=== PATIENT | male | born 1985 | race African-American/Black ===

== ENCOUNTER 2018-11-29 08:36 | Emergency (ER) | payer SELFPAY ==
[~2018-11-29] VITALS: Ht 170.2 cm; Wt 60.0 kg
[2018-11-29] MEDS ORDERED: IBUPROFEN 600MG TABLET PO ONE (11:15)
[2018-11-29 11:47] VITALS: BP 128/89
== END 2018-11-29 11:49 | disposition home or self-care (01) ==
LOC: ER 08:36
DX: S00.83XA Contusion of other part of head, initial encounter (principal); Y04.0XXA Assault by unarmed brawl or fight, initial encounter; Y93.89 Activity, other specified; Y92.488 Other paved roadways as the place of occurrence of the external cause
CPT/HCPCS: 70486; 99284

== ENCOUNTER 2019-02-06 04:57 | Emergency (ER) | payer SELFPAY ==
[~2019-02-06] VITALS: Ht 165.1 cm; Wt 65.0 kg
[2019-02-06 07:21] VITALS: BP 130/88
== END 2019-02-06 07:44 | disposition home or self-care (01) ==
LOC: ER 04:57
DX: S01.511A Laceration without foreign body of lip, initial encounter (principal); Y04.0XXA Assault by unarmed brawl or fight, initial encounter; Y93.89 Activity, other specified; Y92.89 Other specified places as the place of occurrence of the external cause; Y99.8 Other external cause status
CPT/HCPCS: 99283